=== PATIENT | female | born 1985 | race Caucasian/White ===

== ENCOUNTER 2018-12-23 15:11 | Inpatient (IN) | payer OTHER ==
[~2018-12-23] VITALS: Ht 170.2 cm; Wt 85.0 kg
[2019-01-04] VITALS (50 sets, daily range): BP systolic 106–137; BP diastolic 56–78; PULSE 75–105; TEMP 97.6–98.6
[2019-01-04] MEDS ORDERED: CONCEPT DHA1 CAP PO (07:40)
--- NOTE | 2019-01-04 08:00 | NUR ---
0729- Pt arrives on unit ambulatory with for scheduled induction. Oriented to room. Pt into bathroom to change into gown. 0734- Pt into bed, EFM and TOCO on and tracing. Assessment completed. IV started, LR bolus initated. Consents explained and signed.
[2019-01-04 08:14] LABS: BASO % 0.3 % (0.0-2.0); EOS # 0.1 (0.0-0.7); GRAN # 5.2 (1.4-6.5); GRAN % 72.1 % (42.2-75.2); HEMOGLOBIN 12.1 g/dl (12.5-16.0); LYMPH # 1.2 (1.2-3.4); LYMPH % 16.9 % (20.0-51.0); MEAN CELL VOLUME 93 fl (80.0-100.0); MEAN CORPUSCULAR HEMOGLOBIN 30 pg (27.0-31.0); MEAN CORPUSCULAR HGB CONC 33 g/dl (33.0-37.0); MEAN PLATELET VOLUME 10.7 fl (7.4-10.4); MONO # 0.6 (0.1-0.6); MONO % 8.9 % (1.7-9.3); PLATELET COUNT 192 K/mm3 (130-400); RED BLOOD COUNT 3.98 M/mm3 (4.10-5.30)
[2019-01-04 08:16] LABS: HEMATOCRIT 36.9 % (37.0-47.0)
--- NOTE | 2019-01-04 13:30 | NUR ---
1318- Pt sitting on side of bed for epidural placement. 1320- ANUP Key at bedside. FHR noted to be tracing maternal HR due to maternal posiiton. O2sat monitor on and tracing. 1327- Single shot by [employer]ELOPER, see anesthesia record. Pt tolerated well. 1331- Pt assisted to semi-fowlers, EFM and TOCO noted to be tracing well.
--- NOTE | 2019-01-04 16:15 | NUR ---
1544- RN at bedside to reposition Pt. Bloody show noted on Pts gown. SVE, complete/+1. Pt states she feels slight pressure but no pain. 1600- Hopkins out without difficulty. 1607- Practice push with RN at bedside. FHR down to 80bpm noted after pushing. This RN decides to wait until Dr David comes to bedside.
--- NOTE | 2019-01-04 16:45 | NUR ---
1629- Dr David at bedside. Pt and room prepped for delivery. [facility] Nursery RN at bedside. Pt begins pushing with UCs. remains at bedside monitoring strip. 164- of viable female . Placed on mother's abd where dried and stimulated, tended to by nursery RN. Cord blood obtained. Pitocin off. 165- Spontaneous delivery of placenta. Pitocin started at 333ml/hr. Fundus massaged to firm. Pt noted to be intact. Pericare performed, ice pack and clean chux under PT.
--- NOTE | 2019-01-04 20:00 | NUR ---
2000 IV TO INT. EPID CATH REMOVED. UP TO BR WITH ASSIST. RIGHT LEG A LITTLE WOBBLY. UNABLE TO VOID. PERICARE DONE AND TO 207 PER W/C
[2019-01-05 01:00] VITALS: BP 122/68; PULSE 72; TEMP 97.6
== END 2019-01-05 18:20 | disposition home or self-care (01) | DRG 807 ==
LOC: LDR 01-04 07:20 → OB 01-04 20:00 → LDR 01-12 06:21
PROVIDERS: ADMIT Obstetrics & Gynecology
PROC: 10E0XZZ Delivery of Products of Conception, External Approach (ICD-10-PCS; principal; 2019-01-04)
PROC: 10907ZC Drainage of Amniotic Fluid, Therapeutic from Products of Conception, Via Natural or Artificial Opening (ICD-10-PCS; 2019-01-04)
PROC: 3E033VJ Introduction of Other Hormone into Peripheral Vein, Percutaneous Approach (ICD-10-PCS; 2019-01-04)
DX: O13.4 Gestational [pregnancy-induced] hypertension without significant proteinuria, complicating childbirth (principal); Z37.0 Single live birth; Z3A.38 38 weeks gestation of pregnancy; O70.0 First degree perineal laceration during delivery; O99.02 Anemia complicating childbirth; D64.9 Anemia, unspecified
CPT/HCPCS: J2590; J2795; J7120